=== PATIENT | female | born 1950 | race Caucasian/White ===

== ENCOUNTER 2024-04-12 10:15 | Emergency (ER) | payer MEDICARE, OTHER, SELFPAY ==
[2024-04-12 10:31] VITALS: BP 100/81; PULSE 94; RESP 18; TEMP 36.5; O2SAT 96
--- NOTE | 2024-04-12 10:36 | ED.GENADULT ---
HPI - General Adult General Chief complaint: Skin/Abscess/Foreign Body Stated complaint: fever and chills+ headaches+ boil on butt Time Seen by Provider: 04/12/24 10:37 Source: patient Mode of arrival: ambulatory Limitations: no limitations History of Present Illness HPI narrative: 73 yo F presents with c/o nausea, fatigue, chills for 2 days. Pain to R buttock for about 5 days. Noticed redness and swelling 3 days ago. Draining today. Afebrile. All systems reviewed and negative except as noted above. Related Data Home Medications Medication Instructions Recorded Confirmed albuterol sulfate 90 mcg/actuation 2 puff inhalation PRN PRN 04/12/24 04/12/24 aerosol inhaler Shortness Of Breath Or Wheezing atenolol 50 mg tablet 50 mg PO DAILY 04/12/24 04/12/24 budesonide-formoterol HFA 160 2 puff inhalation BID 04/12/24 04/12/24 mcg-4.5 mcg/actuation aerosol inhaler diclofenac sodium 75 mg 75 mg PO BID 04/12/24 04/12/24 tablet,delayed release escitalopram oxalate 10 mg tablet 10 mg PO DAILY 04/12/24 04/12/24 montelukast 10 mg tablet 10 mg PO HS 04/12/24 04/12/24 telmisartan 80 mg tablet 80 mg PO DAILY 04/12/24 04/12/24 Allergies Allergy/AdvReac Type Severity Reaction Status Date / Time lisinopril AdvReac Intermediate Cough Verified 04/12/24 10:37 Review of Systems Review of Systems: CONSTITUTIONAL: Denies fever. Reports chills, fatigue. EYES: Denies visual changes, redness, or discharge. ENT: Denies rhinorrhea, congestion, sore throat, or otalgia. CARDIOVASCULAR: Denies chest pain, palpitations, or edema. RESPIRATORY: Denies cough or dyspnea. GASTROINTESTINAL: Denies abdominal pain, nausea, vomiting, or diarrhea. GENITOURINARY: Denies dysuria or hematuria. SKIN: Denies rash or itching. Pain to right buttock with redness, swelling and drainage. MUSCULOSKELETAL: Denies back pain, joint pain, or myalgia. NEUROLOGIC: Denies headache, numbness, or weakness. PSYCHIATRIC: Denies anxiety or depression. All other systems reviewed are negative, except as documented in HPI. PMFSH Comments At time of signature, agree with nursing past medical, surgical, social and family history. There is no relevant family history pertinent to the presenting complaint. Exam Narrative: GENERAL: This is a well-nourished, well-developed patient, in no apparent distress. HEAD: normocephalic, atraumatic. EYES: PERRL. Sclera clear/white. Vision is grossly intact. EARS: External ears normal NOSE: External nose normal NECK: Neck supple, non-tender without lymphadenopathy, masses or thyromegaly. CARDIOVASCULAR: Regular rate and rhythm without murmurs, gallops, or rubs. RESPIRATORY: Clear to auscultation. Breath sounds equal bilaterally. No wheezes, rales, or rhonchi. SKIN: abscess to R buttock. approx. 3 to 4 cm induration. no fluctuance. erythema approx. 6 x 8cm. purulent, bloody drainage. able to manually extract drainage. wound culture collected. NEURO: awake, alert, and oriented to person, place and time. There were no obvious focal neurologic abnormalities. EXTREMITIES: No joint tenderness, effusion, or edema noted. Course Course Level of Care: Express Care Visit Vital Signs Vital signs: Vital Signs Temperature 36.5 C 04/12/24 10:31 Pulse Rate 94 04/12/24 10:31 Respiratory Rate 18 04/12/24 10:31 Blood Pressure 100/81 04/12/24 10:31 Pulse Oximetry 96 04/12/24 10:31 Oxygen Delivery Room Air 04/12/24 10:31 Temperature 36.5 C 04/12/24 10:31 Pulse Rate 94 04/12/24 10:31 Respiratory Rate 18 04/12/24 10:31 Blood Pressure 100/81 04/12/24 10:38 Pulse Oximetry 96 04/12/24 10:31 Oxygen Delivery Room Air 04/12/24 10:31 reviewed. Medical Decision Making MDM Narrative Medical decision making narrative: draining abscess to R buttock. afebrile. wound culture ordered. will prescribe abx. recommend warm sitz bath, continually to manually drain. recommend if develops fever, feelin
[2024-04-12 10:38] VITALS: BP 100/81
== END 2024-04-12 10:51 | disposition home or self-care (01) ==
PROVIDERS: Emergency Provider Nurse Practitioner Family; PCP Internal Medicine
DX: L02.31 Cutaneous abscess of buttock (principal); E78.00 Pure hypercholesterolemia, unspecified; I10 Essential (primary) hypertension; J45.909 Unspecified asthma, uncomplicated; M19.90 Unspecified osteoarthritis, unspecified site; F41.9 Anxiety disorder, unspecified; F32.A Depression, unspecified
CPT/HCPCS: 87070; 87077; 87147; 87181; 87186; 87205; 99203; G0463